=== PATIENT | female | born 1990 | race Caucasian/White ===

== ENCOUNTER 2017-06-19 10:25 | Outpatient (CLI) | payer OTHER | END 2017-06-19 10:26 | LOC: LABRHC 10:25 | PROVIDERS: ATTEND Family Medicine | DX: Z12.4 Encounter for screening for malignant neoplasm of cervix (principal) | CPT/HCPCS: 88148; G0143 ==

== ENCOUNTER 2019-01-28 15:30 | Outpatient (CLI) | payer OTHER | END 2019-01-28 15:33 | LOC: LABRHC 15:30 | PROVIDERS: ATTEND Family Medicine | DX: Z01.419 Encounter for gynecological examination (general) (routine) without abnormal findings (principal) | CPT/HCPCS: 88148; G0143 ==